=== PATIENT | male | born 1990 | race Caucasian/White ===

== ENCOUNTER 2016-06-26 16:06 | Emergency (ER) | payer SELFPAY ==
[2016-06-26 16:23] VITALS: BP 152/96
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
== END 2016-06-26 16:55 | disposition home or self-care (01) ==
LOC: UCCORT 16:06
DX: S39.012A Strain of muscle, fascia and tendon of lower back, initial encounter (principal); V48.9XXA Unspecified car occupant injured in noncollision transport accident in traffic accident, initial encounter; Y93.9 Activity, unspecified; Y92.410 Unspecified street and highway as the place of occurrence of the external cause; F17.210 Nicotine dependence, cigarettes, uncomplicated
CPT/HCPCS: 99211; G0463

== ENCOUNTER 2016-08-19 18:10 | Emergency (ER) | payer BC ==
[2016-08-19 18:35] VITALS: BP 125/77
--- NOTE | 2016-08-19 19:14 | UC ---
Throat Pain/Nasal Dimitrios HPI - HPI Summary HPI Summary: sore throat for a few days. no other symptoms. - History of Current Complaint Chief Complaint: UCGeneralIllness Stated Complaint: THROAT Time Seen by Provider: 08/19/16 19:01 Hx Obtained From: Patient Onset/Duration: Sudden Onset, Lasting Days Severity: Severe Cough: Nonproductive Associated Signs & Symptoms: Positive: Dysphagia - Epiglottits Risk Factors Epiglottis Risk Factors: Negative - Allergies/Home Medications Allergies/Adverse Reactions: Allergies Allergy/AdvReac Type Severity Reaction Status Date / Time No Known Allergies Allergy Verified 08/19/16 18:34 PMH/Surg Hx/FS Hx/Imm Hx Previously Healthy: Yes Cardiovascular History Of: Denies: Pacemaker/ICD Psychological History Of: Reports: Anxiety - CONTROL WITH MEDS, Depression - Surgical History Surgical History: Yes Surgery Procedure, Year, and Place: bilat carpal tunnel - Family History Known Family History: Positive: None, Other - no skeletal disorders Negative: Cardiac Disease, Hypertension - Social History Alcohol Use: Weekly Alcohol Amount: WEEKENDS Substance Use Type: None Smoking Status (MU): Former Smoker Type: Cigarettes Amount Used/How Often: 15 CIGARETTES PER DAY Length of Time of Smoking/Using Tobacco: 2-3 YEARS Have You Smoked in the Last Year: Yes When Did the Patient Quit Smoking/Using Tobacco: 06/2016 - Immunization History Most Recent Influenza Vaccination: none Review of Systems Constitutional: Negative Skin: Negative Eyes: Negative ENT: Sore Throat Respiratory: Negative Cardiovascular: Negative Gastrointestinal: Negative Genitourinary: Negative Motor: Negative Neurovascular: Negative Musculoskeletal: Negative Neurological: Negative Psychological: Negative All Other Systems Reviewed And Are Negative: Yes Physical Exam Triage Information Reviewed: Yes Appearance: Well-Appearing, Well-Nourished, Pain Distress Vital Signs: Initial Vital Signs Temp 97.0 F 08/19/16 18:31 Pulse 85 08/19/16 18:31 Resp 17 08/19/16 18:31 BP 125/77 08/19/16 18:31 Pulse Ox 100 08/19/16 18:31 Vital Signs Reviewed: Yes Eye Exam: Normal Eyes: Positive: Conjunctiva Clear ENT Exam: Normal ENT: Positive: Hearing grossly normal, Pharyngeal erythema, TMs normal Dental Exam: Normal Neck exam: Normal Neck: Positive: Supple, Nontender, No Lymphadenopathy Respiratory Exam: Normal Respiratory: Positive: Chest non-tender, Lungs clear, Normal breath sounds Cardiovascular Exam: Normal Cardiovascular: Positive: RRR, No Murmur, Pulses Normal Abdominal Exam: Normal Abdomen Description: Positive: Nontender, No Organomegaly, Soft Bowel Sounds: Positive: Present Musculoskeletal Exam: Normal Musculoskeletal: Positive: Strength Intact, ROM Intact, No Edema Neurological Exam: Normal Neurological: Positive: Alert, Muscle Tone Normal Psychological Exam: Normal Skin Exam: Normal Throat Pain/Nasal Course/Dx - Course Course Of Treatment: hx obtained, exam performed, meds reviewed, rapid strep neg , prednisone prescribed, for a very inflammed pharyngitis - Differential Dx/Diagnosis Differential Diagnosis/HQI/PQRI: Influenza, Laryngitis, Pharyngitis, Sinusitis, URI Provider Diagnoses: pharyngitis Discharge - Discharge Plan Condition: Stable Disposition: HOME Prescriptions: predniSONE TAB* [Deltasone TAB*] 40 mg PO DAILY #14 tab Patient Education Materials: Pharyngitis (ED)
== END 2016-08-19 19:17 | disposition home or self-care (01) ==
LOC: UCCORT 18:10
DX: J02.9 Acute pharyngitis, unspecified (principal); F41.8 Other specified anxiety disorders; Z87.891 Personal history of nicotine dependence
CPT/HCPCS: 87651; 99212; G0463

== ENCOUNTER 2016-12-27 11:55 | Emergency (ER) | payer BC ==
[2016-12-27 12:37] VITALS: BP 113/81
--- NOTE | 2016-12-27 12:53 | UC ---
Knee Pain HPI - HPI Summary HPI Summary: 26 yo male with right knee swelling noted yesterday slight redness minimal pain no f/c states he has not been working on knee - History of Current Complaint Chief Complaint: UCLowerExtremity Stated Complaint: RIGHT KNEE PAIN Time Seen by Provider: 12/27/16 12:31 Hx Obtained From: Patient Onset/Duration: Gradual Onset Severity Initially: Mild Severity Currently: Mild Pain Intensity: 1 Pain Scale Used: 0-10 Numeric Character: Dull Aggravating Factor(s): Nothing Alleviating Factor(s): Nothing Associated Signs And Symptoms: Positive: Swelling, Redness Able to Bear Weight: Yes - Allergies/Home Medications Allergies/Adverse Reactions: Allergies Allergy/AdvReac Type Severity Reaction Status Date / Time No Known Allergies Allergy Verified 12/27/16 12:37 PMH/Surg Hx/FS Hx/Imm Hx Previously Healthy: Yes - Surgical History Surgical History: Yes Surgery Procedure, Year, and Place: bilat carpal tunnel - Family History Known Family History: Positive: None, Hypertension, Diabetes, Other - no skeletal disorders Negative: Cardiac Disease - Social History Alcohol Use: Occasionally Alcohol Amount: WEEKENDS Substance Use Type: None Smoking Status (MU): Former Smoker Type: Cigarettes Amount Used/How Often: 15 CIGARETTES PER DAY Length of Time of Smoking/Using Tobacco: 2-3 YEARS Have You Smoked in the Last Year: Yes When Did the Patient Quit Smoking/Using Tobacco: 12/25/16 - Immunization History Most Recent Influenza Vaccination: none Review of Systems Constitutional: Negative Skin: Negative Eyes: Negative ENT: Negative Respiratory: Negative Cardiovascular: Negative Gastrointestinal: Negative Genitourinary: Negative Motor: Negative Neurovascular: Negative Musculoskeletal: Arthralgia Neurological: Negative Psychological: Negative All Other Systems Reviewed And Are Negative: Yes Physical Exam Triage Information Reviewed: Yes Appearance: Well-Appearing, No Pain Distress, Well-Nourished Vital Signs: Initial Vital Signs Temp 97.8 F 12/27/16 12:31 Pulse 65 12/27/16 12:31 Resp 20 12/27/16 12:31 BP 113/81 12/27/16 12:31 Vital Signs Reviewed: Yes Eyes: Positive: Conjunctiva Clear ENT: Positive: Hearing grossly normal Neck: Positive: Supple, Nontender Respiratory: Positive: Lungs clear, Normal breath sounds, No respiratory distress Cardiovascular: Positive: RRR, No Murmur Musculoskeletal: Positive: Edema @ - pre patellar bursal fluid on right-mild with some overlying redness-no obvious skin lesion Neurological: Positive: Alert Psychological Exam: Normal Skin Exam: Normal Knee Pain Course/Dx - Differential Dx/Diagnosis Provider Diagnoses: right prepatellar burisitis Discharge - Discharge Plan Condition: Stable Disposition: HOME Prescriptions: DOXYcycline CAP(*) [DOXYcycline 100MG CAP(*)] 100 mg PO BID #20 cap Patient Education Materials: Knee Bursitis (ED) Referrals: Michela Galvin PA [Primary Care Provider] - 5 Days (if not improved) Additional Instructions: warm compresses at least twice daily no kneeling recheck for worsening symptoms pain fever increased swelling advil 3 pills 4x day with food for one week
== END 2016-12-27 13:14 | disposition home or self-care (01) ==
LOC: UCCORT 11:55
DX: M70.41 Prepatellar bursitis, right knee (principal); Y93.9 Activity, unspecified; Z87.891 Personal history of nicotine dependence
CPT/HCPCS: 99212; G0463

== ENCOUNTER 2017-01-09 15:23 | Emergency (ER) | payer BC ==
[2017-01-09 15:49] VITALS: BP 141/84
--- NOTE | 2017-01-09 16:09 | UC ---
Skin Complaint HPI - HPI Summary HPI Summary: rash on the penis x 2 days + red , itchy , no pain, no discharge - History of Current Complaint Chief Complaint: UCGU Time Seen by Provider: 01/09/17 15:45 Stated Complaint: PERSONAL Hx Obtained From: Patient Onset/Duration: Gradual Onset, Lasting Days - 2, Still Present Timing: Constant Onset Severity: Moderate Current Severity: Moderate Location: Other - penis shaft Character: Pruritus, Redness Aggravating: Nothing Alleviating: Nothing Associated Signs & Symptoms: Positive: Negative - Allergy/Home Medications Allergies/Adverse Reactions: Allergies Allergy/AdvReac Type Severity Reaction Status Date / Time No Known Allergies Allergy Verified 01/09/17 15:49 Review of Systems Constitutional: Negative Eyes: Negative ENT: Negative Respiratory: Negative Cardiovascular: Negative All Other Systems Reviewed And Are Negative: Yes PMH/Surg Hx/FS Hx/Imm Hx Previously Healthy: Yes - Surgical History Surgical History: Yes Surgery Procedure, Year, and Place: bilat carpal tunnel - Family History Known Family History: Positive: None, Hypertension, Diabetes, Other - no skeletal disorders Negative: Cardiac Disease - Social History Alcohol Use: Occasionally Alcohol Amount: WEEKENDS Substance Use Type: None Smoking Status (MU): Former Smoker Type: Cigarettes Amount Used/How Often: 15 CIGARETTES PER DAY Length of Time of Smoking/Using Tobacco: 2-3 YEARS Have You Smoked in the Last Year: Yes When Did the Patient Quit Smoking/Using Tobacco: 12/25/16 - Immunization History Most Recent Influenza Vaccination: none Physical Exam Triage Information Reviewed: Yes Appearance: Well-Appearing, No Pain Distress, Well-Nourished Vital Signs: Initial Vital Signs Temp 97.8 F 01/09/17 15:45 Pulse 71 01/09/17 15:45 Resp 14 01/09/17 15:45 BP 141/84 01/09/17 15:45 Pulse Ox 100 01/09/17 15:45 Vital Signs Reviewed: Yes Eyes: Positive: Conjunctiva Clear ENT: Positive: Normal ENT inspection, Hearing grossly normal, Pharynx normal Neck: Positive: Supple, Nontender, No Lymphadenopathy Respiratory: Positive: Chest non-tender, Lungs clear, Normal breath sounds Cardiovascular: Positive: RRR, No Murmur, Pulses Normal Skin: Positive: Other - + macular rash shaft of the penis, + erythema, non- tender, Course/Dx - Diagnoses Provider Diagnoses: skin yeast infection penis Discharge - Discharge Plan Condition: Stable Disposition: HOME Prescriptions: Nystatin/Triamcinolone CR(NF) [Mycolog CREAM(NF)] 1 applic TOPICAL BID #30 gm Patient Education Materials: Skin Yeast Infection (ED) Referrals: Michela Galvin PA [Primary Care Provider] - 7 Days
== END 2017-01-09 16:20 | disposition home or self-care (01) ==
LOC: UCCORT 15:23
DX: B37.49 Other urogenital candidiasis (principal); Z87.891 Personal history of nicotine dependence
CPT/HCPCS: 99212; G0463

== ENCOUNTER 2017-01-12 10:08 | Emergency (ER) | payer BC ==
--- NOTE | 2017-01-12 10:11 | UC ---
Knee Pain HPI - HPI Summary HPI Summary: 26 year old male presents with complains of right knee pain. - History of Current Complaint Stated Complaint: RIGHT KNEE PAIN Time Seen by Provider: 01/12/17 10:10 Hx Obtained From: Patient Onset/Duration: Sudden Onset Severity Initially: Moderate Severity Currently: Moderate Pain Scale Used: 0-10 Numeric - 5 Character: Sharp Aggravating Factor(s): Movement, Weight Bearing Alleviating Factor(s): Rest Associated Signs And Symptoms: Positive: Negative Able to Bear Weight: Yes - Allergies/Home Medications Allergies/Adverse Reactions: Allergies Allergy/AdvReac Type Severity Reaction Status Date / Time No Known Allergies Allergy Verified 01/12/17 10:18 PMH/Surg Hx/FS Hx/Imm Hx Previously Healthy: Yes - Surgical History Surgical History: Yes Surgery Procedure, Year, and Place: bilat carpal tunnel - Family History Known Family History: Positive: None, Hypertension, Diabetes, Other - no skeletal disorders Negative: Cardiac Disease - Social History Alcohol Use: Occasionally Alcohol Amount: WEEKENDS Substance Use Type: None Smoking Status (MU): Former Smoker Type: Cigarettes Amount Used/How Often: 15 CIGARETTES PER DAY Length of Time of Smoking/Using Tobacco: 2-3 YEARS Have You Smoked in the Last Year: Yes When Did the Patient Quit Smoking/Using Tobacco: 12/25/16 - Immunization History Most Recent Influenza Vaccination: none Review of Systems Constitutional: Negative Skin: Negative Eyes: Negative ENT: Negative Respiratory: Negative Cardiovascular: Negative Gastrointestinal: Negative Genitourinary: Negative Motor: Negative Neurovascular: Negative Musculoskeletal: Other: - right knee pain Neurological: Negative Psychological: Negative All Other Systems Reviewed And Are Negative: Yes Physical Exam Triage Information Reviewed: Yes Eye Exam: Normal ENT Exam: Normal Dental Exam: Normal Neck exam: Normal Neck: Positive: 1 Respiratory Exam: Normal Cardiovascular Exam: Normal Abdominal Exam: Normal Musculoskeletal Exam: Normal Neurological Exam: Normal Psychological Exam: Normal Skin Exam: Normal Knee Pain Course/Dx - Differential Dx/Diagnosis Provider Diagnoses: right knee prepatellar bursitis Discharge - Discharge Plan Condition: Stable Disposition: HOME Prescriptions: Meloxicam [Mobic] 7.5 mg PO BID #30 tab Methylprednisolone [Medrol Dosepak 4 MG*] 4 mg PO .SEE KIERSTEN INSTRUCTION #21 tab Patient Education Materials: Knee Pain (ED) Referrals: Michela Galvin PA [Primary Care Provider] -
[2017-01-12 10:20] VITALS: BP 116/89
--- NOTE | 2017-01-12 10:55 | RAD ---
INDICATION: Right knee swelling, no history of trauma. TECHNIQUE: 4 views of the right knee were obtained. FINDINGS: There is focal soft tissue swelling anterior to the patella. The bones are in normal alignment. No joint effusion or fracture is seen. Joint spaces appear maintained. IMPRESSION: SOFT TISSUE SWELLING ANTERIOR TO THE PATELLA POSSIBLY REPRESENTING A PREPATELLAR BURSITIS.
== END 2017-01-12 11:00 | disposition home or self-care (01) ==
LOC: UCCORT 10:08
DX: M70.41 Prepatellar bursitis, right knee (principal); Z87.891 Personal history of nicotine dependence
CPT/HCPCS: 99212; G0463

== ENCOUNTER 2017-02-06 15:37 | Emergency (ER) | payer BC ==
--- NOTE | 2017-02-06 15:45 | UC ---
Knee Pain HPI - HPI Summary HPI Summary: 26 YEAR OLD MALE WITH KNEE PAIN IN THE RIGHT KNEE . Pt returns from 01/12/17 visit for return of right knee fluid, and c/o pain off on; no hx of injury. He does bend on knees a lot at work and not using any knee pads. He had xray last visit and Dx with pre patellar bursitis . Medrol helped and meloxiam slightly helped. [ End ] - History of Current Complaint Stated Complaint: RIGHT KNEE PAIN Time Seen by Provider: 02/06/17 15:43 Hx Obtained From: Family/Medicare Biller Onset/Duration: Gradual Onset Severity Initially: Moderate Severity Currently: Mild Aggravating Factor(s): Movement Alleviating Factor(s): Rest Associated Signs And Symptoms: Positive: Negative, Swelling - Allergies/Home Medications Allergies/Adverse Reactions: Allergies Allergy/AdvReac Type Severity Reaction Status Date / Time No Known Allergies Allergy Verified 02/06/17 15:49 PMH/Surg Hx/FS Hx/Imm Hx Previously Healthy: Yes - Surgical History Surgical History: Yes Surgery Procedure, Year, and Place: bilat carpal tunnel - Family History Known Family History: Positive: None, Hypertension, Diabetes, Other - no skeletal disorders Negative: Cardiac Disease - Social History Occupation: Employed Full-time Lives: With Family Alcohol Use: Occasionally Alcohol Amount: WEEKENDS Substance Use Type: None Smoking Status (MU): Former Smoker Type: Cigarettes Amount Used/How Often: 15 CIGARETTES PER DAY Length of Time of Smoking/Using Tobacco: 2-3 YEARS Have You Smoked in the Last Year: Yes When Did the Patient Quit Smoking/Using Tobacco: 12/25/16 Cessation Counseling: Patient Advised to Stop - Immunization History Most Recent Influenza Vaccination: none Review of Systems Musculoskeletal: Arthralgia - knee pain, Decreased ROM All Other Systems Reviewed And Are Negative: Yes Physical Exam Triage Information Reviewed: Yes Appearance: Well-Appearing, No Pain Distress, Well-Nourished Vital Signs Reviewed: Yes Respiratory Exam: Normal Cardiovascular Exam: Normal Musculoskeletal: Positive: Strength Intact, ROM Intact, No Edema, Other: - right knee with small prepatellar effusion non tender no discharge no erythema. FROM of the knee and sensation intact. normal knee exam otherwise Neurological Exam: Normal Psychological Exam: Normal Skin Exam: Normal Knee Pain Course/Dx - Course Course Of Treatment: Time to refer to ortho since not resolved at this time. No pain . Advised to start to use the knee protection at work if he needs to kneel/ - Differential Dx/Diagnosis Differential Diagnosis/HQI/PQRI: Contusion, Fracture (Closed), Sprain, Strain Provider Diagnoses: Recurrent pre patellar bursitis Discharge - Discharge Plan Condition: Good Disposition: HOME Patient Education Materials: Knee Bursitis (ED) Referrals: Michela Galvin PA [Primary Care Provider] - 4 Days Raúl Doherty MD [Medical Doctor] - 4 Days (Orthopedic referral )
[2017-02-06 16:03] VITALS: BP 153/124
== END 2017-02-06 16:09 | disposition home or self-care (01) ==
LOC: UCCORT 15:37
DX: M71.561 Other bursitis, not elsewhere classified, right knee (principal); Z87.891 Personal history of nicotine dependence
CPT/HCPCS: 99211; G0463

== ENCOUNTER 2017-06-09 10:08 | Emergency (ER) | payer BC ==
[2017-06-09 10:27] VITALS: BP 134/87
--- NOTE | 2017-06-09 11:23 | UC ---
Respiratory Complaint HPI - HPI Summary HPI Summary: Patient presents to the with 1x day of cough, congestion and chest pain with cough. He denies recent illness, sick contacts or health problems. Denies fevers, sweats or chills. Has been otherwise healthy. Denies nasal drainage or ear pain. Chest pain is only with cough and he denies any cardiac concerns. Non-smoker. - History of Current Complaint Chief Complaint: UCRespiratory Stated Complaint: CHEST CONGESTION Time Seen by Provider: 06/09/17 10:56 Hx Obtained From: Patient Onset/Duration: Gradual Onset Timing: Constant Severity Initially: Mild Severity Currently: Mild Pain Intensity: 0 Character: Cough: Nonproductive Associated Signs And Symptoms: Positive: Dyspnea - Risk Factors Pulmonary Embolism Risk Factors: Negative Cardiac Risk Factors: Negative Pseudomonas Risk Factors: Negative - Allergies/Home Medications Allergies/Adverse Reactions: Allergies Allergy/AdvReac Type Severity Reaction Status Date / Time No Known Allergies Allergy Verified 06/09/17 10:24 PMH/Surg Hx/FS Hx/Imm Hx Previously Healthy: Yes - Surgical History Surgical History: Yes Surgery Procedure, Year, and Place: bilat carpal tunnel - Family History Known Family History: Positive: None, Hypertension, Diabetes, Other - no skeletal disorders Negative: Cardiac Disease - Social History Occupation: Employed Full-time Lives: With Family Alcohol Use: Occasionally Alcohol Amount: WEEKENDS Substance Use Type: None Smoking Status (MU): Heavy Every Day Tobacco Smoker Type: Smokeless Tobacco Amount Used/How Often: 1 can per day Length of Time of Smoking/Using Tobacco: 2-3 YEARS Have You Smoked in the Last Year: Yes When Did the Patient Quit Smoking/Using Tobacco: 12/25/16 - Immunization History Most Recent Influenza Vaccination: none Review of Systems Constitutional: Negative Skin: Negative ENT: Negative Respiratory: Shortness Of Breath, Cough Cardiovascular: Chest Pain - with cough Motor: Negative Neurovascular: Negative Neurological: Negative Psychological: Negative Is Patient Immunocompromised?: No All Other Systems Reviewed And Are Negative: Yes Physical Exam Triage Information Reviewed: Yes Appearance: Well-Appearing, No Pain Distress, Well-Nourished Vital Signs: Initial Vital Signs Temp 98 F 06/09/17 10:23 Pulse 85 06/09/17 10:23 Resp 18 06/09/17 10:23 BP 134/87 06/09/17 10:23 Pulse Ox 99 01/29/18 10:23 Vital Signs Reviewed: Yes Eye Exam: Normal Eyes: Positive: Conjunctiva Clear ENT: Positive: Hearing grossly normal, Pharynx normal, Nasal congestion, TMs normal. Negative: Nasal drainage, Tonsillar swelling, Tonsillar exudate, Dental tenderness, Sinus tenderness Dental Exam: Normal Neck exam: Normal Neck: Positive: Supple, No Lymphadenopathy Respiratory Exam: Normal Respiratory: Positive: Chest non-tender, Lungs clear, Normal breath sounds. Negative: Respiratory distress, Crackles, Rhonchi, Stridor, Wheezing, Expiration , Inspiration Cardiovascular Exam: Normal Cardiovascular: Positive: RRR Musculoskeletal Exam: Normal Musculoskeletal: Positive: Strength Intact Neurological Exam: Normal Neurological: Positive: Alert Psychological: Positive: Normal Response To Family Skin Exam: Normal UC Diagnostic Evaluation - Laboratory O2 Sat by Pulse Oximetry: 99 Respiratory Course/Dx - Course Course Of Treatment: Patient is evaluated for 1x day of cough and congestion and chest pain with cough. SOB. He denies hx of asthma. Lungs CTA and no sinus pressure is noted. I have discussed with patient d/t early symptoms, will treat symptomatically and should return for worsening cough, SOB or chest pain. He is given tessalon, robitussin with codeine (bedtime), albuterol inhaler and prednisone for SOB. He is OK with discharge and will return for worsening symptoms. - Differential Dx/Diagnosis Differential Diagnosis/HQI/PQRI: Bronchitis Provider Diagnoses: Upper Respiratory Infection Discharge - Discharge Plan Condition: Stable Disposition: HOME Prescriptions: Albuterol HFA INHALER* [Ventolin HFA Inhaler*] 1 puff INH Q4H PRN #1 mdi PRN Reason: Shortness Of Breath Benzonatate CAP* [Tessalon CAP*] 100 mg PO TID #21 cap guaiFENesin/CODIEN 100MG-10MG* [Robitussin AC 100Mg-10Mg*] 10 ml PO BEDTIME # 120 udc MDD 10 predniSONE TAB* [Deltasone TAB*] 50 mg PO DAILY #5 tab MDD 1 Patient Education Materials: Upper Respiratory Infection (ED) Referrals: No Primary Care Phys,NOPCP [Primary Care Provider] - Additional Instructions: Follow up with your PCP If symptoms become worse - return to the ED or Prednisone daily in the AM Humidifier in the home will help open up the airways If you begin to feel more chest congestion, I recommend mucinex 24 hour Cepacol tabs (in the cough drop section) and chloraseptic spray for any sore throat Albuterol inhaler 1 puff every 4 hours as needed for cough/SOB Robitussin with codeine - 2 teaspoons at bedtime Tessalon perles - three times daily for cough Tylenol 650mg three times daily will help with the throat discomfort as well
== END 2017-06-09 11:26 | disposition home or self-care (01) ==
LOC: UCCORT 10:08
DX: J06.9 Acute upper respiratory infection, unspecified (principal); F17.220 Nicotine dependence, chewing tobacco, uncomplicated
CPT/HCPCS: 99212; G0463

== ENCOUNTER 2017-08-17 14:10 | Emergency (ER) | payer BC ==
[2017-08-17 15:10] VITALS: BP 136/76
[2017-08-17] MEDS ORDERED: Fluorescein Sod TOPICAL 0.6* 0.6 MG TEST OPHTHALMIC ONE (15:15)
--- NOTE | 2017-08-17 15:27 | UC ---
Eye Complaint HPI - HPI Summary HPI Summary: 27 yo male scratched his right eye last PM removing contacts photophobia and tearing - History of Current Complaint Chief Complaint: UCEye Stated Complaint: EYE COMPLAINT Time Seen by Provider: 08/17/17 15:05 Hx Obtained From: Patient Onset/Duration: Sudden Onset, Lasting Hours Timing: Constant Severity Initially: Mild Severity Currently: Mild Pain Intensity: 3 Pain Scale Used: 0-10 Numeric Location of Injury: Conjunctiva Character: Foreign Body Sensation Aggravating Factor(s): Light Alleviating Factor(s): Darkness Associated Signs And Symptoms: Positive: Photophobia, Drainage (Clear) Related History: Diagnosed As: - corneal abrasion Eyes: 1 - florescein stain - Allergies/Home Medications Allergies/Adverse Reactions: Allergies Allergy/AdvReac Type Severity Reaction Status Date / Time No Known Allergies Allergy Verified 08/17/17 15:10 PMH/Surg Hx/FS Hx/Imm Hx Previously Healthy: Yes - Surgical History Surgical History: Yes Surgery Procedure, Year, and Place: bilat carpal tunnel - Family History Known Family History: Positive: None, Cardiac Disease, Hypertension, Diabetes, Other - no skeletal disorders - Social History Alcohol Use: Occasionally Alcohol Amount: WEEKENDS Substance Use Type: None Smoking Status (MU): Former Smoker Type: Smokeless Tobacco Amount Used/How Often: 1 can per day Length of Time of Smoking/Using Tobacco: 2-3 YEARS Have You Smoked in the Last Year: Yes When Did the Patient Quit Smoking/Using Tobacco: 12/25/16 - Immunization History Most Recent Influenza Vaccination: none Review of Systems Constitutional: Negative Skin: Negative Eyes: Eye Redness, Photophobia, Other - tearing ENT: Negative Respiratory: Negative Cardiovascular: Negative Gastrointestinal: Negative Genitourinary: Negative Motor: Negative Neurovascular: Negative Musculoskeletal: Negative Neurological: Negative Psychological: Negative Is Patient Immunocompromised?: No All Other Systems Reviewed And Are Negative: Yes Physical Exam Triage Information Reviewed: Yes Appearance: Well-Appearing, No Pain Distress, Well-Nourished Vital Signs: Initial Vital Signs Temp 98.1 F 08/17/17 15:06 Pulse 74 08/17/17 15:06 Resp 16 08/17/17 15:06 BP 136/76 08/17/17 15:06 Pulse Ox 99 08/17/17 15:06 Vital Signs Reviewed: Yes Eyes: Positive: Conjunctiva Inflamed - Right ENT: Positive: Hearing grossly normal. Negative: Nasal congestion, Nasal drainage, Trismus, Muffled voice, Hoarse voice Neck: Positive: Supple, Nontender Respiratory: Positive: Lungs clear, Normal breath sounds, No respiratory distress, No accessory muscle use Cardiovascular: Positive: RRR, No Murmur Musculoskeletal: Positive: ROM Intact, No Edema Neurological: Positive: Alert Psychological Exam: Normal Skin Exam: Normal Eye Complaint Course/Dx - Differential Dx/Diagnosis Provider Diagnoses: corneal abrasion Discharge - Sign-Out/Discharge Documenting (check all that apply): Discharge - Discharge Plan Condition: Stable Disposition: HOME Prescriptions: Polymyx/Trimethoprim OPTH* [Polytrim OPHTH*] 1 - 2 drop RIGHT EYE QID #1 btl Patient Education Materials: Corneal Abrasion (ED) Referrals: RUBY Ventura [Primary Care Provider] - Additional Instructions: see your eye doctor tomorrow if not completely better - Billing Disposition and Condition Condition: STABLE Disposition: HOME
== END 2017-08-17 15:31 | disposition home or self-care (01) ==
LOC: UCCORT 14:10
DX: H18.822 Corneal disorder due to contact lens, left eye (principal); Z87.891 Personal history of nicotine dependence
CPT/HCPCS: 99212; G0463

== ENCOUNTER 2018-07-08 12:33 | Emergency (ER) | payer BC, OTHER ==
--- OUTSIDE RECORDS SUMMARY | 2018-07-08 12:52 | XMS REPORT | Continuity of Care Document ---
:1990 External Reference #:[id number] Author Name Delmy Sapphire Care Team Providers Name Role Phone Kirsty Shelton M.D. Primary Care Physician Unavailable Payers Type Date Identification Numbers Payment Provider Subscriber Policy Number: [id number] [facility] Cameron Cardona PayID: [id number] [address] [address] Expires: 2018 Policy Number: [id number] BS [facility] Sri Cardona PayID: [id number] [address] [place] [address] Advance Directives Description No Information Available Problems Date Description Provider Status Onset: 05/11/2018 Eustachian tube disorder Thony Morales M.D. Active Onset: 05/11/2018 Otalgia Thony Morales M.D. Active Onset: 05/11/2018 Cervico-occipital neuralgia Thony Morales M.D. Active Family History Date Family Member(s) Problem(s) Comments General Cancer General Heart Disease General Diabetes Siblings 1 Social History Type Date Description Comments Sex Unknown Marital Status Single Lives With Family Lives With Girlfriend Occupation Currently Working [employer] Tobacco Use Start: Unknown Light tobacco smoker (10 or fewer cigarettes/day) Smoking Status Reviewed: 06/08/18 Light tobacco smoker (10 or fewer cigarettes/day) Tobacco Use Start: Unknown Never Smoked Cigars Tobacco Use Start: Unknown Never Smoked A Pipe Smokeless Tobacco Former Smokeless Tobacco User, Used Occasionally ETOH Use Occasionally consumes alcohol Recreational Drug Use Denies Drug Use Tobacco Use Start: Unknown End: Patient is a former smoker Unknown Exercise Type/Frequency Exercises regularly Allergies, Adverse Reactions, Alerts Description No Known Drug Allergies Medications Medication Date Status Form Strength Qnty SIG Indications Ordering Provider Andreea Active Capsules 220mg 1-2 by Unknown /0000 mouth twice a day as needed Depakote Active Tablets DR 500mg 3 by mouth Unknown /0000 every day Sertraline HCL Active Tablets 100mg 1 by mouth Unknown /0000 every day Cyclobenzaprine 03/16 Hx Tablets 10mg 30tab take one M26.601 Thony HCL s tablet by Andrew, - mouth at M.D. 05/19 bedtime Ultracet 08/29 Hx Tablets 37.5-325m 30tab 1-2 tabs Doris g s by mouth Connor, - every 4-6 M.D. 08/16 hours needed pain Depakote Hx Tablets DR 500mg 120ta 1 po tid Unknown /0000 bs - 03/30 Tylenol Hx Tablets 325mg prn Unknown /0000 - 03/02 Sertraline HCL Hx Tablets 50mg 30tab 1 by mouth Unknown /0000 s every day - 03/31 Divalproex Hx Tablets ER 500mg Jose Luis, Sodium ER /0000 24HR PARK Ross - 02/04 Ciprodex Hx Suspension 0.3-0.1% 4 drops Unknown /0000 twice a - day 7 days 03/15 stop inreased iritation Carbamazepine Hx Chewtabs 100mg chew and Unknown /0000 swallow 1 - tablet by 04/05 twice a day Medications Administered in Office Medication Date Status Form Strength Qnty SIG Indications Ordering Provider Celestone 3 Administered Injection Tohny mg and 3mg 018 Tita Morales Celestone 3 Administered Injection Thony mg and 3mg 018 Tita Morales Depomedrol Administered Injection Doris 80MG Mandi Ryan M.D. Depomedrol Administered Injection Doris 80MG Mandi Ryan M.D. Depomedrol Administered Injection Doris 80MG Mandi Ryan M.D. Depomedrol Administered Injection Doris 80MG Mandi Ryan M.D. Depomedrol Administered Injection Doris 80MG 014 Tita Ryan Depomedrol Administered Injection Doris 80MG 014 Tita Ryan Immunizations Description No Information Available Vital Signs Date Vital Result Comment 06/08/2018 9:35am Height 73 inches 6'1" Weight 290.00 lb BP Systolic Sitting 122 mmHg BP Diastolic Sitting 86 mmHg Pain Level 3 BMI (Body Mass Index) 38.3 kg/m2 06/01/2018 3:46pm Height 73 inches 6'1" Heart Rate 58 /min BP Systolic Sitting 118 mmHg BP Diastolic Sitting 86 mmHg Respiratory Rate 16 /min Pain Level 8 O2 % BldC Oximetry 98 % 05/25/2018 1:26pm Height 73 inches 6'1" Weight 290.00 lb BP Systolic Sitting 126 mmHg BP Diastolic Sitting 68 mmHg Respiratory Rate 16 /min Pain Level 6 BMI (Body Mass Index) 38.3 kg/m2 05/11/2018 3:55pm Height 73 inches 6'1" Heart Rate 68 /min BP Systolic Sitting 126 mmHg BP Diastolic Sitting 94 mmHg Respiratory Rate 16 /min Pain Level 0 O2 % BldC Oximetry 98 % 04/13/2018 3:48pm Height 73 inches 6'1" Weight 290.00 lb BP Systolic 122 mmHg BP Diastolic 82 mmHg Pain Level 0 BMI (Body Mass Index) 38.3 kg/m2 04/06/2018 3:53pm Height 73 inches 6'1" Weight 290.00 lb BP Systolic Sitting 116 mmHg BP Diastolic Sitting 68 mmHg Respiratory Rate 16 /min Pain Level 6 BMI (Body Mass Index) 38.3 kg/m2 03/16/2018 2:18pm Height 73 inches 6'1" Weight 290.00 lb BP Systolic Sitting 132 mmHg BP Diastolic Sitting 74 mmHg Respiratory Rate 16 /min Pain Level 0 BMI (Body Mass Index) 38.3 kg/m2 07/31/2017 1:29pm Height 73 inches 6'1" Weight 260.00 lb Heart Rate 96 /min BP Systolic Sitting 130 mmHg BP Diastolic Sitting 80 mmHg Respiratory Rate 18 /min Pain Level 0 BMI (Body Mass Index) 34.3 kg/m2 02/07/2017 11:27am Height 73 inches 6'1" Weight 260.00 lb BP Systolic Sitting 118 mmHg BP Diastolic Sitting 78 mmHg Respiratory Rate 16 /min Pain Level 0 BMI (Body Mass Index) 34.3 kg/m2 12/27/2015 11:49am Heart Rate 67 /min BP Systolic 116 mmHg BP Diastolic 79 mmHg Pain Level 0 10/11/2015 1:04pm Height 73 inches 6'1" Weight 280.00 lb Heart Rate 60 /min Respiratory Rate 16 /min Body Temperature 98.2 F Pain Level 3 BMI (Body Mass Index) 36.9 kg/m2 08/30/2015 3:02pm Height 73 inches 6'1" Weight 280.00 lb Heart Rate 88 /min BP Systolic 125 mmHg BP Diastolic 79 mmHg BMI (Body Mass Index) 36.9 kg/m2 02/08/2015 3:44pm Heart Rate 76 /min BP Systolic Sitting 128 mmHg BP Diastolic Sitting 82 mmHg 01/25/2015 3:57pm Heart Rate 78 /min BP Systolic Sitting 128 mmHg BP Diastolic Sitting 80 mmHg 11/23/2014 9:41am Heart Rate 80 /min BP Systolic Sitting 120 mmHg BP Diastolic Sitting 82 mmHg 03/02/2014 11:04am Height 73 inches 6'1" Weight 265.00 lb Heart Rate 83 /min BP Systolic Sitting 124 mmHg BP Diastolic Sitting 86 mmHg Pain Level 0 BMI (Body Mass Index) 35.0 kg/m2 02/01/2013 10:35am Height 72 inches 6'0" Weight 260.00 lb BMI (Body Mass Index) 35.3 kg/m2 Results Description No Information Available Procedures Date Code Description Status 04/13/2018 22767 Injection For Nerve Block, Greater Occipital Nerve Completed 04/06/2018 87815 Injection For Nerve Block, Greater Occipital Nerve Completed 07/31/2017 73123 Inject/Drain Joint/Bursa Major W/O US Completed 02/07/2017 48384 Inject/Drain Joint/Bursa Major W/O US Completed 01/26/2016 54612 Nerve Conduction 03-04 Studies Completed 01/26/2016 69061 Needle Electromyography Complete, Five Or More Muscles Completed Studied 09/26/2015 22798 Carpal Tunnel Release Completed 09/26/2015 96035 Carpal Tunnel Release Completed 02/08/201572313 Inject Tendon Sheath Or Ligament Aponeurosis Eg Plantar Completed Fascia 11/23/201412038 Inject Tendon Sheath Or Ligament Aponeurosis Eg Plantar Completed Fascia 05/25/201464903 Inject/Drain Joint/Bursa Small W/O US Completed 05/25/2014 Inject/Drain Joint/Bursa Small W/O US Completed 05/25/2014 Inject Tendon Sheath Or Ligament Aponeurosis Eg Plantar Completed Fascia 03/02/2014 35253 Rad Exam; Hand Comp Completed 03/02/2014 Inject/Drain Joint/Bursa Small W/O US Completed Encounters Type Date Location Provider Dx Diagnosis Office Visit 06/01/2018 [facility], [place].2 Cervicalgia 3:45p [facility] [place] Tita 4.81 Occipital neuralgia Office Visit 05/25/2018 1:30p [facility] [place] [address].81 Occipital [facility] neuralgia [place] M54.2 Cervicalgia H92.01 Otalgia, right ear H69.91 Unspecified Eustachian tube disorder, right ear Office Visit 05/11/2018 4:00p [facility] [place] [address].81 Occipital [facility] neuralgia [place] H92.01 Otalgia, right ear H69.91 Unspecified Eustachian tube disorder, right ear Office Visit 04/13/2018 [facility] M54.12 Radiculopathy, 3:45p Of C.M.A. AT [place] Morales cervical region [place] M54.81 Occipital neuralgia M26.601 Right temporomandibular joint disorder, unspecified H92.01 Otalgia, right ear Office Visit 04/06/2018 [facility] M54.12 [facility]iculopathy, 4:00[facility] [place] M54.81 Occipital neuralgia M26.601 Right temporomandibular joint disorder, unspecified H69.83 Other specified disorders of Eustachian tube, bilateral Office Visit 03/16/2018 2:15p [facility] H92.01 Otalgia, right [facility] [place] M26.601 Right temporomandibular joint disorder, unspecified H69.83 Other specified disorders of Eustachian tube, bilateral Office Visit 07/31/2017 1:30p Orthopedic Raúl Doherty M70.41 Prepatellar [facility] bursitis, right AT [place] knee Office Visit 02/07/2017 11:30a Orthopedic Raúl Doherty M70.41 Prepatellar [facility] bursitis, right AT [place] knee Office Visit 12/27/2015 11:20a Orthopedic Meli Martin, G56.02 Carpal tunnel [facility] syndrome, left C.M.A. upper limb Office Visit 08/30/2015 2:45p Orthopedic Doris G56.01 Carpal tunnel [facility] Tiat Ryan syndrome, right C.M.A. upper limb G56.02 Carpal tunnel syndrome, left upper limb Office Visit 02/08/2015 Orthopedic Doris M65.841 Other synovitis and 3:45p [facility] Bryn Ryan M.D. tenosynovitis, AT [place] right hand Office Visit 01/25/2015 Orthopedic Doris 727.05 Tenosynovitis Hand 4:00p [facility] Bryn Ryan M.D. & Wrist Other AT [place] Office Visit 02/08/2013 Orthopedic Doris 927.3 Crushing Injury 8:00a Services Of Bryn Ryan M.D. Finger(S) AT [place] 927.3 Crushing Injury Finger(S) Office Visit 02/01/2013 10:15a Orthopedic Brenton Shin7.3 Crushing Injury [facility] [place] [place] Finger(S) AT [place] 927.3 Crushing Injury Finger(S) Plan of Treatment Future Appointment(s):07/06/2018 4:00 pm - Thony Morales M.D. at [facility]/02/2019 4:00 pm - [facility] [place]
[2018-07-08 13:00] VITALS: BP 142/72
--- NOTE | 2018-07-08 13:14 | ED ---
Upper Extremity Pain - HPI Summary HPI Summary: 28 yr old male with the complaint of right elbow, shoulder and clavicle pain. Onset of symptoms was prior to arrival here. The patient fell out of his chair at work when leaning back, and landed on his elbow. Pain is moderate. Worse with movement of elbow and better with placing his right arm in the hooded sweatshirt pocket. - History of Current Complaint Chief Complaint: UCUpperExtremity Stated Complaint: RIGHT ELBOW INJURY - W/C Time Seen by Provider: 07/08/18 13:01 - Allergies/Home Medications Allergies/Adverse Reactions: Allergies Allergy/AdvReac Type Severity Reaction Status Date / Time No Known Allergies Allergy Verified 07/08/18 12:54 PMH/Surg Hx/FS Hx/Imm Hx Endocrine/Hematology History: Denies: Hx Diabetes Cardiovascular History: Denies: Hx Hypertension, Hx Pacemaker/ICD Respiratory History: Reports: Other Respiratory Problems/Disorders - HX OF COUGHING WITH USE OF INHALERS, NO INHALER USES NOW, QUIT SMOKING History: Denies: Hx Renal Disease Sensory History: Reports: Hx Contacts or Glasses - CONTACT INSTRUCTED TO WEAR GLASSED DAY OF SURGERY Denies: Hx Hearing Aid Opthamlomology History: Reports: Hx Contacts or Glasses - CONTACT INSTRUCTED TO WEAR GLASSED DAY OF SURGERY Neurological History: Reports: Other Neuro Impairments/Disorders - BIPOLAR - ON DEPAKOTE Psychiatric History: Reports: Hx Anxiety - CONTROL WITH MEDS, Hx Depression Denies: Hx Panic Disorder - Surgical History Surgery Procedure, Year, and Place: bilat carpal tunnel. WISDOM TEETH. EAR TUBE RIGHT EAR-NO LONGER IN EAR Hx Anesthesia Reactions: No - LOCAL Infectious Disease History: No Infectious Disease History: Denies: Hx Clostridium Difficile, Hx Hepatitis, Hx Human Immunodeficiency Virus (HIV), Hx of Known/Suspected MRSA, Hx Shingles, Hx Tuberculosis, Hx Known/ Suspected VRE, Hx Known/Suspected VRSA, History Other Infectious Disease, Traveled Outside the [place] in Last 30 Days - Family History Known Family History: Positive: None, Cardiac Disease, Hypertension, Diabetes, Other - no skeletal disorders - Social History Occupation: Employed Full-time Alcohol Use: Rare Alcohol Amount: WEEKENDS Substance Use Type: Reports: None Smoking Status (MU): Former Smoker Type: Smokeless Tobacco Amount Used/How Often: 1 can per day Length of Time of Smoking/Using Tobacco: 2-3 YEARS Have You Smoked in the Last Year: Yes Review of Systems Constitutional: Negative Positive: Other - right elbow, shoulder and clavicle pain All Other Systems Reviewed And Are Negative: Yes Physical Exam Triage Information Reviewed: Yes Vital Signs On Initial Exam: Initial Vitals Temp Pulse Resp BP Pulse Ox 97.9 F 72 16 142/72 99 07/08/18 12:55 07/08/18 12:55 07/08/18 12:55 07/08/18 12:55 07/08/18 12:55 Vital Signs Reviewed: Yes Appearance: Positive: Well-Appearing, No Pain Distress Skin: Positive: Warm, Skin Color Reflects Adequate Perfusion Head/Face: Positive: Normal Head/Face Inspection Eyes: Positive: EOMI ENT: Positive: Normal ENT inspection Neck: Positive: Nontender Respiratory/Lung Sounds: Positive: Clear to Auscultation, Breath Sounds Present Cardiovascular: Positive: RRR. Negative: Murmur Abdomen Description: Negative: Distended Musculoskeletal: Positive: Other - right elbow with tenderness over the olecrenon, and discomfort with pronation. Forearm non tender, wrist non tender , hand non tender. He has some tenderness right shoulder and the medial right clavicle. No deformity.. Neurovasculature is intact. Neurological: Positive: Sensory/Motor Intact, Alert, Oriented to Person Place, Time, CN Intact II-III Diagnostics - Vital Signs Vital Signs Temp Pulse Resp BP Pulse Ox 07/08/18 12:55 97.9 F 72 16 142/72 99 - Laboratory Lab Statement: Any lab studies that have been ordered have been reviewed, and results considered in the medical decision making process. - Radiology right elbow, shoulder, clavicle Radiology Interpretation Completed By: Radiologist - sts posterior elbow. no fx Course/Dx - Course Course Of Treatment: 28 yr old with contusion right elbow. Sling given. FU with ortho - Diagnoses Provider Diagnoses: Contusion of elbow, left Discharge - Sign-Out/Discharge Documenting (check all that apply): Patient Departure All imaging exams completed and their final reports reviewed: Yes - Discharge Plan Condition: Good Disposition: HOME Patient Education Materials: Contusion in Adults (ED) Referrals: Kirsty Shelton MD [Primary Care Provider] - 2 Days - Billing Disposition and Condition Condition: GOOD Disposition: Home
== END 2018-07-08 14:11 | disposition home or self-care (01) ==
LOC: UCCORT 12:33
DX: S50.01XA Contusion of right elbow, initial encounter (principal); M25.511 Pain in right shoulder; Z87.891 Personal history of nicotine dependence; W07.XXXA Fall from chair, initial encounter; Y92.9 Unspecified place or not applicable
CPT/HCPCS: 99212; G0463